=== PATIENT | male | born 1955 | race Caucasian/White ===

== ENCOUNTER 2017-09-13 14:30 | Emergency (ER) | payer OTHER ==
--- OUTSIDE RECORDS SUMMARY | 2017-09-13 14:37 | XMS REPORT ---
:1955 External Reference #:[id number] Author Organization [facility] Address [address] [place] [address] [place] [address] Phone [phone] Care Team Providers Name Role Phone Durga Watkins MD Primary Care Physician Unavailable Payers Type Date Identification Numbers Payment Provider Subscriber Commercial Policy Number: [id number] [employer] Zane [employer] Number: [id number] [id number] PayID: [id number] [place] [address] Problems Description No Information Family History Date Family Member(s) Problem(s) Comments General Heart Disease Social History Type Date Description Comments 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 hours as needed Indomethacin 000 Active prn Unknown 000 Aleve 0 Active Tablets 220mg as needed Unknown 000 Lumigan 0 Active Solution 0.01% once a day Unknown 000 in the evening both eyes Vital Signs Date Vital Result Comment 09/06/2017 Height 72 inches 6'0" Weight 187.50 lb Heart Rate 89 /min BP Systolic 132 mmHg BP Diastolic 80 mmHg Respiratory Rate 17 /min Body Temperature 98.4 F Pain Level 1 BMI (Body Mass Index) 25.4 kg/m2 08/13/2017 Height 72 inches 6'0" Weight 184.75 lb Heart Rate 92 /min BP Systolic 126 mmHg BP Diastolic 76 mmHg Respiratory Rate 16 /min Body Temperature 97.8 F Pain Level 4 BMI (Body Mass Index) 25.1 kg/m2 01/23/2014 Height 72 inches 6'0" Weight 184.00 lb Heart Rate 77 /min BMI (Body Mass Index) 25.0 kg/m2 12/20/2013 Height 72 inches 6'0" Weight 184.00 lb Heart Rate 76 /min BMI (Body Mass Index) 25.0 kg/m2 12/19/2013 Height 72 inches 6'0" Weight 184.00 lb Heart Rate 76 /min BP Systolic 150 mmHg BP Diastolic 89 mmHg BMI (Body Mass Index) 25.0 kg/m2 10/25/2013 Height 72 inches 6'0" Weight 184.00 lb Heart Rate 70 /min BP Systolic 144 mmHg BP Diastolic 90 mmHg BMI (Body Mass Index) 25.0 kg/m2 Results Description No Information Procedures Date CPT Code Description Status 12/20/2013 59952 Manipulation,Palmar Fascial Cord, Post Enzyme Injection Completed Single 12/19/2013 60843 Injection,Enzyme Palmar Fascial Cord Completed Encounters Type Date Location Provider CPT E/M Dx Office Visit 08/13/2017 [facility] [place] [address] M72.0 9:30a Ang[facility] Office Visit 01/23/2014 [facility] 94752 728.6 10:30a Angie Saenz M.D. Office Visit 10/25/2013 [facility] [address]3905 728.6 9:00a Angie Saenz M.D. Plan of Care Future Appointment(s):10/07/2017 9:15 am - Duran Roque MD at [facility]10/19/2017 9:45 am - Duran Roque MD at [facility]
--- NOTE | 2017-09-13 14:59 | UC ---
Shoulder Pain HPI - HPI Summary HPI Summary: 62 yo male presents with LEFT shoulder pain for the last 3 days. He tells me that 4 days ago he picked up his young nephew, but didn't have pain at the time. The next day he noticed pain in that posterior shoulder and a bump there. Bump is tender to touch. He does have a hx of gout, but says that when he gets gout there is warmth and swelling - this is not warm and feels more bony in character. Unsure if this has been there in the past, but just noticed it 3 days ago - not changing. Has taken aleve for the pain with no relief. Denies headache, dizziness, numbness, tingling, radiation of pain, SOB, or chest pain. - History of Current Complaint Chief Complaint: UCUpperExtremity Stated Complaint: SHOULDER COMPLAINT Time Seen by Provider: 09/13/17 14:59 Hx Obtained From: Patient Onset/Duration: Sudden Onset Severity Initially: Moderate Severity Currently: Moderate Pain Intensity: 5 Pain Scale Used: 0-10 Numeric - Allergies/Home Medications Allergies/Adverse Reactions: Allergies Allergy/AdvReac Type Severity Reaction Status Date / Time No Known Allergies Allergy Verified 09/13/17 15:07 Home Medications: Home Medications Bimatoprost 0.01% OPHTH (NF) [Lumigan 0.01% OPHTH (NF)] 1 drop LEFT EYE QPM [History Confirmed 09/13/17] Indomethacin 25 mg PO 09/13/17 [History] PMH/Surg Hx/FS Hx/Imm Hx - Additional Past Medical History Additional PMH: Gout Previously Healthy: Yes - Surgical History Surgical History: None - Family History Known Family History: Positive: Hypertension - Social History Occupation: Employed Full-time Lives: With Family Alcohol Use: Occasionally Substance Use Type: None Smoking Status (MU): Former Smoker Review of Systems Constitutional: Negative Skin: Negative Respiratory: Negative Cardiovascular: Negative Neurovascular: Negative Musculoskeletal: Other: - LEFT shoulder pain Neurological: Negative Psychological: Negative All Other Systems Reviewed And Are Negative: Yes Physical Exam - Summary Physical Exam Summary: GENERAL: NAD. WDWN. No pain distress. SKIN: No rashes, sores, lesions, or open wounds. NECK: Supple. Nontender. No lymphadenopathy. CHEST: No accessory muscle use. Breathing comfortably and in no distress. CV: Pulses intact radial and ulnar. MSK: LEFT SHOULDER: Bone-like prominence on the posterior AC joint approx 1.0cm. TTP. No warmth or erythema. FROM. Strength 5/5. Negative apleys, apprehension, empty can, clark-rocky, and yergason tests. NEURO: Alert. Sensations intact hand and all fingers. PSYCH: Age appropriate behavior. Triage Information Reviewed: Yes Vital Signs: Vital Signs: Temp Pulse Resp BP Pulse Ox 97.6 F 64 18 144/91 100 09/13/17 14:57 09/13/17 14:57 09/13/17 14:57 09/13/17 14:57 09/13/17 14:57 Vital Signs Reviewed: Yes Shoulder Course/Dx - Course Course Of Treatment: XR: IMPRESSION: NEGATIVE EXAMINATION. This nodule on his posterior shoulder could be early gout or a lipoma. I have advised him to monitor the area and f/u with Sports Medicine for further eval. - Differential Dx/Diagnosis Provider Diagnoses: Left shoulder pain Discharge - Sign-Out/Discharge Documenting (check all that apply): Patient Departure - Discharge Plan Condition: Stable Disposition: HOME Patient Education Materials: Shoulder Pain (ED) Referrals: No Primary Care Phys,NOPCP [Primary Care Provider] - Sports Medicine [facility] [Provider Group] - As Soon As Possible Additional Instructions: If you develop a fever, shortness of breath, chest pain, new or worsening symptoms - please call your PCP or go to the ED. Your blood pressure was high at todays visit. Please see your primary provider within 4 weeks for recheck and re-evaluation. 1) Please schedule a follow up appointment with Sports Medicine as soon as possible for further evaluation - Billing Disposition and Condition Condition: STABLE Disposition: Home
--- NOTE | 2017-09-13 15:30 | RAD ---
INDICATION: Left shoulder pain COMPARISON: None TECHNIQUE: Routine frontal, Y and axial views were obtained. FINDINGS: The bony structures, joint spaces, and soft tissues are normal for age. IMPRESSION: NEGATIVE EXAMINATION.
== END 2017-09-13 15:40 | disposition home or self-care (01) ==
LOC: UCEAST 14:30
DX: M25.512 Pain in left shoulder (principal); Z87.891 Personal history of nicotine dependence
CPT/HCPCS: 99201; G0463

== ENCOUNTER 2017-10-07 08:51 | Day surgery (SDC) | payer OTHER ==
[~2017-10-07 08:51] MED LIST: Buffered Lidocaine 0.9% SYRIN* 5 ML/SYR SYRINGE INTRADERM ONE; Dexamethasone IV* 4 MG/ML 1 ML (4 MG) IV SLOW PU ONE; Dexamethasone IV* 4 MG/ML 1 ML (4 MG) ONE; Famotidine IV* 10 MG/ML 2 ML (20 mg) IV ONE; Famotidine IV* 10 MG/ML 2 ML (20 mg) ONE
[2017-10-07] MEDS ORDERED: ceFAZolin 2 GM PREMIX (*) 2 GM/50 ML BAG IVPB ONE (09:08)
[2017-10-07] MEDS ORDERED: Midazolam* 1 MG/ML 2 ML VIAL (2 MG) ONE (10:20)
[2017-10-07] MEDS ORDERED: fentaNYL* 50 MCG/ML 2 ML VIAL (100 MCG VIAL) ONE ×3 (10:20→12:52)
[2017-10-07] MEDS ORDERED: Lidocaine 2% PF * 5 ML VIAL ONE (10:20)
[2017-10-07] MEDS ORDERED: Propofol* 10 MG/ML 20 ML BTL IV PUSH ONE (10:20)
[2017-10-07] MEDS ORDERED: DiMENhydriNATE IV* 50 MG/ML VIAL IV PUSH PRN (10:29)
[2017-10-07] MEDS ORDERED: oxyCODONE/Acetamin 5/325 MG* TAB PO PRN (10:29)
[2017-10-07] MEDS ORDERED: fentaNYL* 50 MCG/ML 2 ML VIAL (100 MCG VIAL) IV PRN (10:29)
[2017-10-07] MEDS ORDERED: HYDROcodone/ACETAMIN 5-325 MG* 1 TAB PO PRN (10:29)
[2017-10-07] MEDS ORDERED: Naloxone* 0.4 MG/ML 1 ML VIAL IV PRN (10:29)
[2017-10-07] MEDS ORDERED: Bupivacaine 0.5% PF 10 ML VIAL INJ ONE (12:04)
[2017-10-07] MEDS ORDERED: EPHEDrine (Pressors)* 50 MG/ML VIAL ONE (12:29)
[2017-10-07] MEDS ORDERED: Metoprolol Tartrate IV* 1 MG/ML 5 ML VIAL ONE (12:41)
[2017-10-07] MEDS ORDERED: Ondansetron INJ* 2 MG/ML VIAL ONE (12:43)
[2017-10-07 14:44] VITALS: BP 127/77
--- NOTE | 2017-10-11 23:26 | OP ---
DATE OF OPERATION: 10/07/17 - [facility] DATE OF : 57 SURGEON: Duran Roque MD CLIENT CARE MANAGER: TAB Alexandre ANESTHESIA: General. PRE-OP DIAGNOSIS: Severe left small finger Dupuytren's contracture with PIP joint contracture greater than 90 degrees. POST-OP DIAGNOSIS: Severe left small finger Dupuytren's contracture with PIP joint contracture greater than 90 degrees. OPERATIVE PROCEDURE: 1. Excision of Dupuytren's disease, left small finger and palm for correction of severe left small finger PIP joint contracture. 2. Closure of wound with full-thickness skin graft with a hypothenar donor site. INDICATIONS: Zane is a 62-year-old, he has severe contracture of the left small finger with essentially a finger and palm deformity. We had talked about risk and benefits. He understands that he will almost certainly have an incomplete correction of his contracture given the extent of his disease. Additionally, he understands the risk of neurovascular injury with the need for skin grafting to close the wound or potentially having to leave the wound open, the risk of infection, the risk of stiffness, and tendon adhesions. He wants to proceed with surgery. ESTIMATED BLOOD LOSS: 2 mL. COMPLICATIONS: None. FINDINGS: See above and below. DESCRIPTION OF PROCEDURE: Zane was seen in the preoperative holding area. The correct side and site of the procedure were identified. We came back to the operating room where the arm was prepped and draped in usual fashion. At time-out performed. I exsanguinated the arm with the Esmarch and the tourniquet was inflated to 250 mmHg. The hand was placed on the lead hand with the fingers straightened to the extent possible. I made a Velma incision in the left palm overlying the fifth ray. Full-thickness flaps were raised off the Dupuytren's cord. This was released proximally. The digital neurovascular bundles were identified and traced out distally as the Dupuytren's tissue was excised together with the involved vertical septa. The Dupuytren's tissue was released off the A1 barbara. As I came across the MP joint, I was able to progressively straighten the finger. Great care was taken to not injure the neurovascular bundles as the remainder the Dupuytren's tissue was excised. Ultimately, this required an incision down to the distal interphalangeal joint flexion crease. Once I had all the Dupuytren's tissue excised, I could straighten the finger at rest, the joint came back to about 30 or 40 degrees of flexion, but passively I could straighten it relatively easily. There was absolutely no more Dupuytren's tissue present. At this point, I back-cut the corners of my flaps to try to gain length. There was significant shortage of skin secondary to the large contracture. I performed a rotational flap by back- cutting ulnarly based flap over the A1 barbara area and then rotating this down to cover the area over the proximal phalanx and PIP joint to the extent possible. This left a small 5 x 7 mm area where I was not able to close the skin. This also left a wound in the palm over the A1 barbara where the skin was not able to be closed. I went ahead and raised a full-thickness skin graft near the mid axial line in the hypothenar region. No subcutaneous tissue was left on the undersurface of the skin graft. I went ahead and sized this and sewed it into place over the palmar finger wound. There was excellent subcutaneous tissue in the bed of the palm wound, so I decided to leave that wound open and not to skin graft it as it would have required raising more skin graft probably from the forearm region. Ultimately, I decided to leave it open and let it heal by secondary intention. With the wound now closed and the Dupuytren's tissue excised and the finger straight, I went ahead and infiltrated the operative area with Marcaine. The wound was appropriately dressed and the finger was splinted with the MP joint in 10 to 20 degrees of flexion and the IP joint in full extension. Tourniquet was deflated. The finger did pink up almost immediately. The patient was then woken up and taken to the recovery room in stable condition. [id number] #: [id number]
== END 2017-10-07 14:47 | disposition home or self-care (01) ==
LOC: OREAST 08:51
PROVIDERS: ATTEND Orthopaedic Surgery Hand Surgery
DX: M72.0 Palmar fascial fibromatosis [Dupuytren] (principal); Z72.0 Tobacco use
CPT/HCPCS: 88304; J0690; J1100; J2250; J2405; J2704; J3010; J3490